=== PATIENT | female | born 1960 | race Caucasian/White ===

== ENCOUNTER 2019-10-30 16:30 | Emergency (ER) | payer OTHER ==
[~2019-10-30] VITALS: Ht 152.4 cm; Wt 78.5 kg
[2019-10-30 16:35] VITALS: BP 118/90
[2019-10-30 17:07] VITALS: BP 118/90
== END 2019-10-30 17:06 | disposition home or self-care (01) ==
LOC: MED 16:30
DX: M62.830 Muscle spasm of back (principal); R03.0 Elevated blood-pressure reading, without diagnosis of hypertension; R05 Cough; Z90.710 Acquired absence of both cervix and uterus
CPT/HCPCS: 99281

== ENCOUNTER 2022-05-06 19:07 | Emergency (ER) | payer OTHER ==
--- NOTE | 2022-05-06 19:15 | NUR ---
CALL TO BE TRIAGE , NO RESPONSE PATIENT LEFT WITHOUT BEING SEEN BY DR. KRAFT. NO FURTHER CARE PROVIDED FOR PATIENT.
--- NOTE | 2022-05-06 19:20 | NUR ---
CALLED FOR THE SECOND TIME , NO RESPONSE
--- NOTE | 2022-05-06 19:25 | NUR ---
CALLED FOR THE THIRD TIME, NO RESPONSE
== END 2022-05-06 19:20 | disposition left against medical advice (07) ==
LOC: MED 19:07
DX: M25.559 Pain in unspecified hip (principal); Z53.21 Procedure and treatment not carried out due to patient leaving prior to being seen by health care provider

== ENCOUNTER 2022-07-12 21:49 | Emergency (ER) | payer OTHER ==
--- NOTE | 2022-07-12 23:25 | NUR ---
Unable to locate pt in [facility].
== END 2022-07-12 23:48 | disposition left against medical advice (07) ==
LOC: MED 21:49
DX: M54.9 Dorsalgia, unspecified (principal); Z53.21 Procedure and treatment not carried out due to patient leaving prior to being seen by health care provider